=== PATIENT | female | born 1990 | race Caucasian/White ===

== ENCOUNTER 2016-07-04 18:00 | Inpatient (IN) | payer OTHER ==
--- NOTE | ~2016-07-04 | DS ---
Unit #: [id number] #: [id number] Patient: INDIA YAÑEZ [id number] [facility] [address] [place] [address] [id number] MR#: [id number] NAME: INDIA YAÑEZ ROOM: P210 Age: 25 Sex: F Admission Date: 07/04/2016 : 1990 Discharge Date: 07/07/2016 Attending Physician: Trino Duffy M.D. Primary Care Physician: Primary Care Physician No DISCHARGE SUMMARY REASON FOR ADMISSION [place] was admitted after reporting increasing use of alcohol together with amphetamines and other drugs in order to cope with the of her brother. She report increasing psychosocial dysfunction as a result of substance abuse and inability to establish sobriety outside the hospital. She was admitted for stabilization. LABORATORY DATA Please see hospital chart. HOSPITAL COURSE Patient was admitted and placed on suicide precautions and the alcohol detox protocol. Celexa 20 mg daily was initiated for treatment of depression and was well tolerated. She enrolled in psychotherapy groups and activities and participated appropriately with her social welfare research worker on discharge planning. On the day of discharge she was able to contract for safety and denied any further suicidal ideation, intent or plan. DISCHARGE DIAGNOSIS [place] Major depression, alcohol abuse. Amphetamine abuse. AXIS II: No diagnosis. AXIS III: Polysubstance withdrawal, resolved. INSTRUCTION TO PATIENT Follow up with community mental health and primary care physician. DISCHARGE MEDICATIONS Celexa 20 mg daily for depression. Home medications include estradiol patch 0.75 mg twice weekly for hormone replacement. CONDITION ON DISCHARGE Improved PROGNOSIS Fair to good. DIET AND ACTIVITY Per primary care doctor Dictated by... Trino Duffy M.D. [facility] Unit #: [id number] #: [id number] Patient: INDIA YAÑEZ TD: 09/08/2016 01:08 JOB #: [id number] DISCHARGE SUMMARY Page 1 of 1 X Trino Duffy MD X DISCHARGE SUMMARY
--- NOTE | ~2016-07-04 | HP ---
Unit #: [id number] #: [id number] Patient: INDIA YAÑEZ [id number] [place] [address] [id number] I MR#: [id number] NAME: INDIA YAÑEZ ROOM: P210 Age: 25 Sex: F Admission Date: 07/04/2016 : 1990 Attending Physician: Trino Duffy M.D. Admitting Physician: Trino Duffy M.D. Primary Care Physician: Primary Care Physician No HISTORY AND PHYSICAL HISTORY OF PRESENT ILLNESS [place] is a 25 year old admitted to [address] [place] [address] because of her drug use. She abuses alcohol and uses methamphetamine. PAST MEDICAL HISTORY 1. Long history of alcohol abuse. 2. History of illicit substance abuse. 3. History of ovarian cancer, diagnosed 2011. PAST SURGICAL HISTORY 1. Complete hysterectomy. 2. Cholecystectomy. ALLERGIES No known drug allergies. SOCIAL HISTORY Smokes one pack per day. Drinks a pint of liquor on a daily basis. Admits to using methamphetamine. FAMILY HISTORY Medically noncontributory. REVIEW OF SYSTEMS CONSTITUTIONAL: No fever or chills. HEENT: Denies any sore throat, ear pain or runny nose. CARDIOVASCULAR: Denies chest pain, irregular heart rhythm or palpitations. CHEST: Denies shortness of breath or cough. No hemoptysis. GASTROINTESTINAL: Denies nausea, vomiting, diarrhea or chronic constipation. ENDOCRINE: Denies history of increased thirst or urination. No recent significant weight loss or gain. GENITOURINARY: Denies dysuria, frequency, or hematuria. SKIN: Denies any rashes. HEMATOLOGIC: Denies history of increased bleeding or bruising. MUSCULOSKELETAL: Denies any hot, swollen joints. No generalized muscle pain. NEUROLOGIC: Denies problems with vision or speech. No frequent, severe headaches. No numbness, tingling or weakness in any extremities. Denies loss of bladder or bowel control. Unit #: [id number] #: [id number] Patient: INDIA YAÑEZ CURRENT MEDICATIONS 1. Detox protocol 2. Wellbutrin XL 150 mg q.a.m. 3. Desyrel 50 mg q.h.s. p.r.n. PHYSICAL EXAMINATION GENERAL: Alert, well-nourished, in no apparent distress. VITAL SIGNS: Blood pressure 115/82, heart rate 84, respirations 16, temperature 98.6. WEIGHT: 140 pounds. HEIGHT: 5'6". SKIN: Warm and dry without rash or lesion. HEENT: Normocephalic. TMs not viewed. Oral and nasal passages clear. Conjunctivae clear. Pupils equal, round and reactive to light and accommodation. Extraocular movements intact. NECK: Supple without lymphadenopathy or thyromegaly. HEART: Regular rate and rhythm without murmur. LUNGS: Clear. ABDOMEN: Soft, nontender. : Not done. EXTREMITIES: No evidence of cyanosis, clubbing or edema. Moves all extremities without focal deficit. NEUROLOGICAL: Grossly within normal limits. Cranial Nerves: II: Visual guerra are intact. III, IV AND : Extraocular movements are intact. Pupils are equal, round and reactive to light. V: Facial sensation is grossly normal. VII: Facial movements and expression are normal. VIII: Auditory acuity grossly intact. IX, X: Uvula is midline. Phonation is normal. XI: Patient shrugs shoulders and turns head normally. XII: Tongue protrudes in the midline. Sensory and Motor Function: Sensory and motor sensation is grossly normal. Motor: moves all extremities well. Coordination: Gait is normal. Deep Tendon Reflexes: Intact. IMPRESSION Psychiatric admission RECOMMENDATIONS PSYCHIATRIC: Per psychiatrist. MEDICAL: I see no contraindications to participating in facility's activities. MEDICAL PROGNOSIS Good. MEDICAL CONDITION Stable. Dictated by... Ange Mccarthy P.A.-C. for Jennifer Henderson Unit #: [id number] #: [id number] Patient: INDIA YAÑEZ TD: 07/06/2016 00:28 JOB #: [id number] HISTORY AND PHYSICAL Page 1 of 1 X Ange Mccarthy HISTORY AND PHYSICAL
--- NOTE | ~2016-07-04 | PA ---
Unit #: [id number] #: [id number] Patient: INDIA YAÑEZ [id number] [place] [address] [id number] I MR#: [id number] NAME: INDIA YAÑEZ ROOM: P210 Age: 25 Sex: F Admission Date: 07/04/2016 : 1990 Date of Assessment: 07/05/2016 Attending Physician: Trino Duffy M.D. Admitting Physician: Trino Duffy M.D. Primary Care Physician: Primary Care Physician No PSYCHIATRIC ASSESSMENT DATE OF SERVICE 07/05/2016. INFORMANTS The patient, reliable; OLOP, reliable. CHIEF COMPLAINT Depression and substance abuse. HISTORY OF PRESENT ILLNESS [place] is a 25-year-old woman who reports that her brother 1 year ago and she has become increasingly depressed and hopeless. She has attempted to self medicate with alcohol marijuana and occasional amphetamines. She said that her children are staying with relatives and she has had trouble maintaining employment and housing. She reports vague suicidal ideation, but no specific plan or intent. She was admitted for psychiatric assessment and stabilization. PAST PSYCHIATRIC HISTORY No previous inpatient admissions per patient. She have no current psychiatric treatment plan. FAMILY PSYCHIATRIC HISTORY There is a family history of bipolar and "borderline schizophrenic" illness in her family. SOCIAL HISTORY The patient denied a history of childhood abuse or neglect. She is a single woman with children, who are in the care of family. She lost her brother last year and says that was a proximal cause of her increasing alcohol and methamphetamine use. She has no income and is staying with family. PAST MEDICAL HISTORY The patient states that she had a hysterectomy, which has caused some hot flashes. MEDICATIONS Estradiol patch for perimenopausal symptoms. ALLERGIES No known medication allergies. Unit #: [id number] #: [id number] Patient: INDIA YAÑEZ SUBSTANCE USE HISTORY As noted. MENTAL STATUS EXAMINATION [place] presented as a mildly disheveled woman who appeared her stated age. She was cooperative with the examination. Her speech was spontaneous and easily understood. Her musculoskeletal examination was calm. Her mood was depressed and anxious with a congruent affect. She was alert and fully oriented. Her memory and concentration were intact. Her thought processes were logical and there was no evidence of psychosis. She reported suicidal ideation, but could not contract for safety outside of the hospital. Insight and judgment were fair. Fund of knowledge and abstraction were fair. ASSETS AND LIABILITIES Assets; the patient knows local resources and presents voluntarily for treatment. Liabilities; lack of current treatment plan, ongoing drug use. ADMITTING DIAGNOSES AXIS I: Major depressive disorder; alcohol dependence; amphetamine abuse. AXIS II: No diagnosis. AXIS III: Polysubstance withdrawal. AXIS IV: AXIS V: PSYCHIATRIC PLAN The patient was admitted and placed on suicide precautions and the alcohol detox protocol. She will be placed on citalopram 20 mg daily for depression and enrolled in psychotherapy groups and activities with dual diagnosis focus. Treatment goals are resolution of SI, improvement in insight, and improvement in coping skills. DISCHARGE PLANNING Follow up with [facility]. ESTIMATED LENGTH OF STAY 5 days. Dictated by... Trino Duffy M.D. ANIVAL/brett TD: 09/08/2016 04:48 JOB #: [id number] Unit #: [id number] #: [id number] Patient: INDIA YAÑEZ PSYCHIATRIC ASSESSMENT Page 1 of 1 X Trino Duffy MD X PSYCHIATRIC ASSESSMENT
[2016-07-05 12:39] LABS: BASOPHIL# 0.1 X10e3 (0-0.3); BASOPHIL% 1.3 % (0-2.5); EOSINOPHIL# 0.4 X10e3 (0-0.7); EOSINOPHIL% 5.6 % (0.0-7.0); HEMATOCRIT 45.6 % (35.0-45.0); LYMPHOCYTE# 1.6 X10e3 (1.0-3.5); LYMPHOCYTE% 24.7 % (17.0-45.0); MEAN CELL VOLUME 93.2 FL (83-96); MEAN CORPUSCULAR HEMOGLOBIN 30.7 PG (28-34); MEAN CORPUSCULAR HGB CONC 32.9 g/dL (30-36); MEAN PLATELET VOLUME 9.6 FL (6.5-11.5); MONOCYTE# 0.7 X10e3 (0-1.0); MONOCYTE% 10.1 % (3.0-12.0); NEUTROPHIL# 3.8 X10e3 (1.5-7.1); NEUTROPHIL% 58.3 % (40-75); PLATELET COUNT 194 X10e3 (140-420); RED BLOOD COUNT 4.89 X10e (3.90-5.30); RED CELL DISTRIBUTION WIDTH 13.6 % (11.0-15.5); WHITE BLOOD COUNT 6.6 X10e3 (4.0-10.5)
[2016-07-05 12:51] LABS: DIFF IND NO
[2016-07-05 12:52] LABS: ALBUMIN SERUM 3.9 g/dL (3.5-5.0); BILIRUBIN,TOTAL 0.4 mg/dL (0.2-2.0); BUN/CREATININE RATIO 18.75; CALCIUM SERUM 9.2 mg/dL (8.4-10.2); CREATININE SERUM 0.8 mg/dL (0.6-1.4); GLOM FILT RATE Estimated 101.1 mL/min (>60); POTASSIUM 4.3 mmol/L (3.5-5.1); PROTEIN TOTAL SERUM 6.7 g/dL (6.0-8.3)
== END 2016-07-07 12:40 | disposition home or self-care (01) | DRG 897 ==
LOC: P2S 21:43
PROVIDERS: Psychiatry & Neurology Psychiatry
PROC: HZ2ZZZZ Detoxification Services for Substance Abuse Treatment (ICD-10-PCS; principal; 2016-07-04)
DX: F19.239 Other psychoactive substance dependence with withdrawal, unspecified (principal); F10.10 Alcohol abuse, uncomplicated; R45.851 Suicidal ideations; F15.10 Other stimulant abuse, uncomplicated; F32.9 Major depressive disorder, single episode, unspecified; Z85.43 Personal history of malignant neoplasm of ovary; F17.210 Nicotine dependence, cigarettes, uncomplicated
CPT/HCPCS: 80053; 85025; 86592